=== PATIENT | male | born 1950 | race Caucasian/White ===

== ENCOUNTER 2017-01-12 06:55 | Emergency (ER) | payer MEDICARE ==
[~2017-01-12] VITALS: Ht 175.3 cm; Wt 62.1 kg
[~2017-01-12 06:55] MED LIST: CA C1TAB58 PO; DAPT500V7 IV; FISH OIL PO; VITAMIN D3 PO
[2017-01-12 07:00] VITALS: BP 141/62
[2017-01-12] MEDS ORDERED: CLOB15CR TP (07:15)
--- NOTE | 2017-01-12 07:16 | PHYS DOC ---
Adult General Chief Complaint Chief Complaint: left leg problem HPI HPI Patient is a 66-year-old male who presents with an ongoing problem on his left leg that is not getting better. It started in late November, he believes he had a brown recluse bite. He did not see what bit him. He saw his provider and was prescribed Cefdinir and finished 10 days with no improvement. He was switched about a week ago to Bactrim DS and is taking that as directed. He is having a lot of redness and weeping of the skin surrounding the bite. Otherwise he feels fine. He works about 3 days a week and is on his feet quite a bit. Review of Systems Review of Systems Constitutional: Denies fever or chills [] Integument: He also has an itchy rash on his right arm. Allergies Allergies Allergies Coded Allergies Type Severity Reaction Last Updated Verified I S O L A T I O N *CONTACT* Allergy Unknown 09/13/15 Yes NKMA Allergy Unknown 09/13/15 Yes Physical Exam Physical Exam Constitutional: Well developed, well nourished, no acute distress, non-toxic appearance. Alert, ambulatory, mentating normally. HENT: Normocephalic, atraumatic, bilateral external ears normal, nose normal. [] Eyes: conjunctiva normal, no discharge. [] Neck: Normal range of motion, no stridor. [] Skin: Warm, dry, right arm has an area on the medial forearm with a papular rash that appears mildly excoriated but not vesicular. Extremities: No tenderness, no cyanosis, no clubbing, ROM intact, no edema. Left leg: Ethel on the anterior lower leg there is a 1 cm black lesion that appears consistent with a brown recluse bite. There is a large area on the anterior aspect of basically the entire lower leg from the knee to the ankle that is bright red, vesicular, weeping, with scattered satellite vesicles. The skin finding appears consistent with contact dermatitis. There is no significant swelling. It does not have an appearance consistent with cellulitis. Neurologic: Alert and oriented X 3, normal motor function, normal sensory function, no focal deficits noted. [] EKG EKG [] Radiology/Procedures Radiology/Procedures [] Course & Med Decision Making Course & Med Decision Making Pertinent Labs and Imaging studies reviewed. (See chart for details) 66-year-old male with a likely brown recluse bite now has a large area of redness and weeping bed appears to me to be contact dermatitis. He has been using triple antibiotic ointment when he bandaged the original lesion and I believe he now has contact dermatitis secondary to that. His skin was washed with soap and water in the ED and re-bandaged. He is doing a good job bandaging it. We will have him stop triple antibiotic ointment and start steroid cream for treatment and drying. He may continue the Bactrim until it is finished since he has been taking it to help prevent secondary infection. [] Dragon Disclaimer Dragon Disclaimer This chart was dictated in whole or in part using Voice Recognition software in a busy, high-work load, and often noisy Emergency Department environment. It may contain unintended and wholly unrecognized errors or omissions. Departure Departure: Impression: Primary Impression: Contact dermatitis and eczema due to drugs and medicines in contact with skin Additional Impression: Spider bite Disposition: 01 HOME, SELF-CARE Condition: STABLE Referrals: JOHN ADAMS (PCP) Additional Instructions: I believe your skin problems are caused by an allergy to triple antibiotic ointment. Avoid any contact with your skin in the future. If needed to moisten a wound, use plain Vaseline instead of medicated ointment. Continue the oral antibiotic TMP/SMX (Bactrim) until it is finished. Apply a small amount of steroid cream to the entire area twice a day until better. About 1 inch of cream should be enough for the entire area, rubbed in well. Continue to bandage as you are doing, although when possible, leave it open to the air for periods of time once or twice a day. Scripts Clobetasol Propionate (CLOBETASOL PROPIONATE) 15 Gm Cream..g. 1 PRATEEK TP BID for contact dermatitis, #30 GM 1 Refill Apply 1 inch to affected area on left leg and rub in well Prov: ALEX TAO MD 01/12/17 Problem Qualifiers ALEX TAO MD Jan 12, 2017 07:16
== END 2017-01-12 07:20 | disposition home or self-care (01) ==
LOC: ER 06:55
DX: L25.1 Unspecified contact dermatitis due to drugs in contact with skin (principal); T63.331A Toxic effect of venom of brown recluse spider, accidental (unintentional), initial encounter; Z91.041 Radiographic dye allergy status; Y92.89 Other specified places as the place of occurrence of the external cause
CPT/HCPCS: 99283